=== PATIENT | female | born 1980 | race Caucasian/White ===

== ENCOUNTER → 2024-02-22 15:55 | Outpatient (REF) | payer OTHER, SELFPAY | LOC: HWWDC 15:55 | PROVIDERS: ATTENDING PHYSICIAN Nurse Practitioner Adult Health; FAMILY PHYSICIAN Family Medicine | DX: Z12.31 Encounter for screening mammogram for malignant neoplasm of breast (principal) | CPT/HCPCS: 77063; 77067 ==

== ENCOUNTER 2024-03-11 11:17 | Inpatient (IN) | payer OTHER, SELFPAY ==
[2024-03-11] VITALS (48 sets, daily range): BP systolic 96–137; BP diastolic 61–116; BMI 38.0
--- NOTE | 2024-03-11 10:10 | ED.GENMED ---
History of Present Illness
General
Chief Complaint: Breathing Problem
Source: patient
Exam Limitations: none
Time Seen by Provider: 03/11/24 10:09
Nursing documentation reviewed up to this point in time: agreed with
History of Present Illness
History of Present Illness:
43-year-old female presents emergency room complaining of shortness of breath and chest tightness that began this morning. She is brought in by EMS. She has a history of factor V Leiden. EMS noted hypoxia at 89%.
Past History
Past History
ED Past Medical History: GERD and Other (Factor V Leiden)
ED Past Surgical History: Tonsilectomy
Social History
Tobacco: Non-smoker
Alcohol: None
Drug: None
Review of Systems
Review of Systems
Allergies reviewed?: Yes
All Other Systems: Not applicable
Constitutional: Reports no symptoms
EENT: Reports no symptoms
Respiratory: Reports trouble breathing
Cardiac: Reports chest pain
ABD/GI: Reports no symptoms
: Reports no symptoms
Musculoskeletal: Reports no symptoms
Skin: Reports no symptoms
Neurological: Reports no symptoms
Endocrine: Reports no symptoms
Hematologic/Lymphatic: Reports no symptoms
Psychiatric: Reports no symptoms
Phy Exam
Physical Exam
Physical Exam:
Physical Exam
General: Moderate distress, diaphoretic, afebrile, temperature 97.4
Neck: supple. no meningeal signs. normal posterior pharynx
Heart: s1/s2 tachycardia, no murmur. equal radial
pulses.
HEENT: Pupils equal round reactive to light, EOMI
Lungs: Moderate respiratory distress. clear bilaterally
Abdomen: normal bowel sounds. not tender. no CVAT
Neuro: alert and oriented. no focal neurological deficits cranial nerves II through XII intact
Skin: no rash
Psychiatric: well kept. interactive and cooperative
Extremities: no edema. no calf tenderness. negative homans. good distal pulses
Course
Orders/Labs/Results
Orders:
Orders
03/11/24 09:59
EKG [Electrocardiogram (*1)] Urgent
Reason for Study: Shortness of Breath
EKG- Treatment ONCE
03/11/24 10:09
Cardiac Monitoring- Treatment ONCE
EKG- Treatment ONCE
IV Insert/Care/Rem.- Treatment PRN
Pulse Ox/cont/shift [RESP] Stat
Quantity: 1
03/11/24 10:10
CT Chest Pe Study Urgent
Comment:
Reason For Exam: short of breath factor v leiden
Test Result ONCE
03/11/24 10:14
CMP [Comprehensive Metabolic Panel] Urgent
Complete Blood Count/With Diff Urgent
D-Dimer Urgent
HCG, Serum Qualitative Screen Urgent
NT-proBNP Urgent
PTT Urgent
Prothrombin Time Urgent
Troponin I Urgent
03/11/24 10:[address] Non Medication Order As Directed
Physician Order: PTT 6 hours after initial start of Heparin infusion
Above order entered?: Yes
03/11/24 10:39
Heparin 8,200 units IV NOW STA
03/11/24 10:41
Echo 2D MMode Color/Doppler Stat
Reason for Study: submassive PE
03/11/24 10:42
Heparin See Dose Instructions IV PRN PRN
03/11/24 10:43
Heparin See Dose Instructions IV PRN PRN
03/11/24 10:45
Heparin 41562 Units/250 ml 25,000 units in 250 ml IV PER PROTOCOL
Weight to be used for heparin protocol in kilograms (kg):: 101.9
Protocol:: DVT/PE
PTT Goal Range to be used:: PTT 73 to 111 seconds
Order type:: Initial
INITIAL Infusion Dose (UNITS/KG/hr) & then follow protocol:: 18 units/kg/hr
Infusion Dose in UNITS/hr & then follow protocol (UNITS/hr):: 1,800
INFUSION RATE in mL/hr & then follow protocol (mL/hr):: 18
For DVT/PE algorithm, re-bolus for low PTT?: Yes
PTT less than or equal to 64 seconds:: Re-bolus 80 units/kg (max 10,000units). Increase by 400 units/hr
(+ 4mL/hr)
PTT 64.1 to 72.9 seconds:: Re-bolus 40 units/kg (max 5,000 units). Increase by 200 units/hr
(+ 2mL/hr)
PTT 73 to 111 seconds:: Target Range. No change in rate.
PTT 111.1 to 130.9 seconds:: Decrease rate by 200 units/hr (- 2 mL/hr)
PTT 131 to 199.9 seconds:: HOLD for 1 hr. Then decrease by 300 units/hr (- 3mL/hr)
PTT greater than or equal to 200 seconds:: HOLD for 2 hrs & Notify Provider. Then decrease by 400 units/hr
(- 4mL/hr)
Lab follow-up:: Each change, PTT q6h until 2 consecutive are therapeutic. Then
PTT daily.
03/11/24 11:00
Admit/Transfer Patient As Directed
Co-Sign Provider:
Level of Care: Inpatient admission
Assign to:: ICU
Physician / Group: solomon hammonds
Diagnosis: Acute hypoxic respiratory failure secondary to Acute provoked PE
Reason for Hospitalization: Acute hypoxic respiratory failure secondary to Acute provoked PE
Expected length of stay greater than two midnights?: Yes
ELOS- Estimated Length of Stay in days: 3
I certify the patient meets the requirements for IP care: Yes
Flush (0.9% Sodium Chloride) [Flush (Nss)] See Dose Instructions IV PER PROTOCOL
PRN Pain Medication Management As Directed
May give lesser potent ordered pain med per pt: Yes
preference::
Protocol:: Medication orders for pain may be administered in a
manner that supports deferring to patient preference
when the pt is:
- Requesting an ordered lesser potent pain medication.
Least to most potent pain medications are defined
as: acetaminophen < NSAID < tramadol < opioids
(morphine, oxycodone, hydromorphone).
- Requesting a lesser dose of the same medication IF
ORDERED.
- Requesting a less intrusive route of administration
if both routes are prescribed by the provider (PO <
IV).
03/11/24 11:06
Code Status As Directed
Resuscitation Status: Full Code
03/11/24 11:07
HEMATOLOGY CONSULT Routine
Consulting Provider: Sally Lopez
Was physician already notified: Yes
Reason for consult: provoked PE, factor V not on AC as outpatient
03/11/24 17:00
PTT Routine
Abnormal Lab Results
03/11/24
10:14
WBC 11.4 H 10^3/uL
(4.8-10.8)
MCV 80.7 L fL
(81.0-99.0)
MCH 26.5 L pg
(27.0-31.0)
MCHC 32.9 L g/dL
(33.0-37.0)
Plt Count 401 H 10^3/uL
(130-400)
Abs Immat Gran (auto) 0.1 H 10^3/uL
(0-0.05)
Absolute Lymphs (auto) 4.1 H 10^3/uL
(1.2-3.4)
Absolute Monos (auto) 0.8 H 10^3/uL
(0.1-0.6)
D-Dimer 5.20 H ug/mlFEU
(0.00-0.50)
Carbon Dioxide 16 L mmol/L
(22-30)
Glucose 228 H mg/dl
(70-99)
Troponin I 0.049 H* ng/ml
03/11/24 10:14
03/11/24 10:14
Vital Signs
Initial and Last Documented VS:
Initial Vital Signs
Temp Pulse Resp BP Pulse Ox
97.4 F 126 28 114/86 87
03/11/24 09:59 03/11/24 09:59 03/11/24 09:59 03/11/24 09:59 03/11/24 09:59
Last Documented Vital Signs
Temp Pulse Resp BP Pulse Ox
97.3 F 123 22 120/90 97
03/11/24 13:46 03/11/24 14:35 03/11/24 14:35 03/11/24 14:35 03/11/24 14:35
MDM/Problems Addressed
Differential Diagnosis Includes:
CHF, pneumonia, pulmonary emboli 43-year-old female with bilateral pulmonary emboli
MDM/Problems Addressed:
43-year-old female with bilateral pulmonary emboli. PERT alert called. IV heparin started. Text sent to interventional radiology, d/w pulmonology, recommends stat echo.
*Radiology
Radiology exam reviewed: preliminary read by ED provider (CT shows bilateral pulmonary emboli with right heart strain) and radiology read reviewed (Echocardiogram shows RV strain)
*Pulse Oximetry
Patient hypoxic: yes
*EKG
Interpreted by ED Provider?: Yes
EKG Intrepretation Date: 03/11/24
EKG Intrepretation Time: 10:08
Interpretation: abnormal
Comparison EKG: no comparison EKG present
Heart Rate: 124
Rate: tachycardiac
Rhythm: sinus tachycardia
Ava: right axis deviation
Interval: normal interval
QRS Pattern: normal QRS
Ischemia: no ischemia
*Revenue Stamp Clerk Interpretation
Rate: tachycardiac
Interpretation: abnormal
Heart Rate: 115
Rhythm: sinus tachycardia
*Critical Care Note
Total Time (30-74mins, 75-104mins- exclusive of procedures): 30
comment:
Critical care statement: A total of 30 minutes of critical care time was provided for this patient. This includes management of unstable vital signs, evaluation of the patient at bedside, reviewing the patient's pertinent medical records, discussion
with consultants, review of old EKGs and review of pertinent medical records. This time with separate from time utilized to perform the aforementioned documented procedures
Patient Management
Social determinants of health affecting care: Living situation and Strong social support
Discussion with other providers: Hospitalist, Supervisor Accounting Clerks (Locks Inspector, interventional radiologist) and Radiologist
Escalation/DeEscalation of care consider admission/obs:
Admit indicated
ED Attending Note
-
Portions of this chart may have been created with voice recognition software.� Occasional wrong word or��sound alike� substitutions may have occurred due to the inherent limitations of voice recognition software.
Discharge Plan
Departure
Patient Disposition: Admit
Date of Disposition: 03/11/24
Time of Disposition: 10:37
Admit to: ICU
Presentation/result/management discussed w/ accepting MD/DO: Hospitalist
Patient with high blood pressure during this ER visit?: No
Condition: Serious
Discharge Problem:
Bilateral pulmonary embolism
Interventions
Interventions:
*Risk Screen - Suicide Last Done: 03/11/24 09:59
*General Assessment Last Done: 03/11/24 11:07
*Neglect/Abuse Screening Last Done: 03/11/24 09:59
ED- Fall Risk Assessment Last Done: 03/11/24 11:07
*ED COVID-19 Vaccine History Last Done: 03/11/24 09:59
*Nursing Disposition Last Done: 03/11/24 13:45
ED- Cardiac Assessment Last Done: 03/11/24 11:07
ED- Pulmonary Assessment Last Done: 03/11/24 11:07
Discharge Date and Time
Discharge Date/Time: 03/11/24 13:45
[2024-03-11 10:31] LABS: % Basophils 0.3 % (0-2); % Eosinophils 0.9 % (0-6); % Immature Granulocytes 0.5 % (0-0.5); % Lymphocytes 35.8 % (20.5-51.1); % Monocytes 7.4 % (1.7-9.3); % Neutrophils 55.1 % (42.2-75.2); Absolute Eosinophils 0.1 10^3/uL (0-0.7); Absolute Immature Granulocytes 0.1 10^3/uL (0-0.05); Absolute Lymphocytes 4.1 10^3/uL (1.2-3.4); Absolute Monocytes 0.8 10^3/uL (0.1-0.6); Absolute Neutrophils 6.3 10^3/uL (1.4-6.5); Hematocrit 42.6 % (37.0-47.0); Mean Corp Hgb Conc. 32.9 g/dL (33.0-37.0); Mean Corpuscular Hgb 26.5 pg (27.0-31.0); Mean Corpuscular Volume 80.7 fL (81.0-99.0); Mean Platelet Volume 9.8 fL (7.4-10.4); Nucleated Red Blood Cells % 0 %; Platelet Count 401 10^3/uL (130-400); Red Blood Cell Count 5.28 10^6/uL (4.20-5.40); Red Cell Dist. Width 13.6 % (11.5-14.5); White Blood Cell Count 11.4 10^3/uL (4.8-10.8)
[2024-03-11 10:38] LABS: HCG, Serum Qualitative Screen Negative
[2024-03-11 10:43] LABS: ALT (SGPT) 21 U/L (0-35); AST (SGOT) 30 U/L (14-36); Albumin 4.8 g/dl (3.5-5.0); Alkaline Phosphatase 84 U/L (38-126); Blood Urea Nitrogen 12 mg/dl (7-17); Carbon Dioxide 16 mmol/L (22-30); Chloride 105 mmol/L (98-107); Estimated Creatinine Clearance 95 ml/min; Glucose 228 mg/dl (70-99); Potassium 4.3 mmol/L (3.5-5.1); Sodium 143 mmol/L (135-145); Total Bilirubin 0.6 mg/dl (0.2-1.3); Total Protein 7.9 g/dl (6.3-8.2); eGFR > 60.00
--- NOTE | 2024-03-11 10:43 | W.PN.UPDATE ---
Update Note
Progress Note Update
Received PERT alert for this patient regarding bilateral acute PE. She appears to be hypoxic with SpO2 down to 87% although is hemodynamically stable. Labs including troponin + proBNP are pending. I reached out to the ER physician, Dr. St,
and advised to obtain stat echo to assess RV function. If patient is symptomatic with dysfunctional RV and elevated cardiac biomarkers then would recommend catheter directed thrombolysis. I will follow this patient closely and make disposition
recommendations based on upcoming blood work and cardiac imaging.
[2024-03-11] MEDS: HEPARIN 8200 UNITS IV (10:46)
[2024-03-11 10:50] LABS: INR 1.12; PT 14.2 Sec (11.4-14.6)
[2024-03-11 10:52] LABS: APTT 28.6 Sec (23.4-35.0); NT-proBNP 2870 pg/ml; Troponin I 0.049 ng/ml
[2024-03-11] MEDS: HEPARIN 25000 UNITS/250 ML IV ×2 (10:53→17:43)
--- NOTE | 2024-03-11 12:10 | CON.INTV ---
Consultation
Consultation Request
Date/Time Consultation Requested: 03/11/2024
Date/Time Consultation Performed: 03/11/2024 - 1050
Requesting Provider: Dr. Tripathi
Performing Provider: Dr. Valdes
Reason for Consultation: Acute PE
Medical History
-
Chief Complaint: Shortness of breath + chest tightness
History of Present Illness:
43-year-old morbidly obese female with a past medical history of factor V Leiden not on chronic anticoagulation, GERD, depression/anxiety, hypothyroidism, seasonal allergies and hypertriglyceridemia who presents with worsening shortness of breath +
chest tightness. Patient was diaphoretic in the ER. Patient also takes combined oral contraceptive pills for control purposes. She was 87-88% on room air in the ER and was placed on 4 L/min. She says that her shortness of breath has
actually been ongoing for the last 1 month. In the ER she was tachycardic, tachypneic and diaphoretic, and afebrile to 97.4�F with BP 114/86. Initial labs showed mild leukocytosis to 11.4, D-dimer 5.2, serum bicarbonate level low at 16, glucose
228, troponin 0.049, proBNP 2870, and beta-hCG negative. CTA chest obtained showing moderately extensive bilateral PE with right heart strain and small area of pulmonary infarction in the right lower lobe + right middle lobe. A PERT alert was
called and CTA chest was reviewed immediately. Stat echo obtained showing Garner's sign with severe pulmonary hypertension with PASP 80 mmHg, with an underfilled LV with hyperdynamic systolic function. Discussion held between myself and IR and
catheter directed thrombolysis was recommended. Patient admitted to the ICU for further care and security support analyst services consulted for additional management/recommendations.
When asked with the patient she had already gone to IR and then was now back with the catheter directed thrombolysis infusion. She felt much better compared to earlier this morning, currently on 5 L/min nasal cannula and saturating 91%. Heart rate
117 and BP 110/96. She says that her right leg calf region feels uncomfortable. She is not sure if it is a musculoskeletal thing versus a possible clot. She has no known history of DVT in the lower extremities although she did have a left foot
phlebitis in October 2023. She currently denies chest pain, MARIN, abdominal pain, nausea, fevers or chills. Also denies any recent plane rides, long car trips, or personal history of cancer.
PMHx: Factor V Leiden, GERD, depression/anxiety, hypothyroidism, hypertriglyceridemia, seasonal allergies, obesity
PShx: Tonsillectomy, bilateral carpal tunnel surgery
Past Medical History
Past Medical History: Other (Above as per HPI)
Past Surgical History: Other (Above as per HPI)
Social History
Tobacco: Non-smoker
Alcohol: None
Drug: None
Family History
Family History: Cancer (Mother: Cervical cancer) and Other (Mother, uncle + cousin: Factor V Leiden)
Allergies / Home Medications
Allergies
Allergy/AdvReac Type Severity Reaction Status Date / Time
No Known Allergies Allergy Verified 03/11/24 10:10
Home Medications
�Medication �Instructions �Recorded �Confirmed �Last Taken �Type
Lactobac no.2-Bifidobac no.1-S. 1 cap PO DAILY@1200 probiotic 03/11/24 03/11/24 03/10/24 History
thermo 112.5 billion cell capsule
(Visbiome)
acetaminophen 325 mg tablet 650 mg PO QIDPRN PRN mild pain 03/11/24 03/11/24 03/10/24 History
(Tylenol)
cranberry extract 200 mg capsule 200 mg PO DAILY@1200 Supplement 03/11/24 03/11/24 03/10/24 History
(Ellura)
cyclosporine 0.05 % eye drops in a 1 drp BOTH EYES Q12H dry eyes 03/11/24 03/11/24 03/10/24 History
dropperette (Restasis)
desogestrel-e.estradiol 0.15 1 tab PO HS Hormonal Agent 03/11/24 03/11/24 03/10/24 History
mg-0.02 mg(21)/e.estrad 0.01 mg(5)
tablet (Kariva (28))
dexlansoprazole 60 mg 60 mg PO DAILY Gastrointestinal 03/11/24 03/11/24 03/10/24 History
capsule,biphase delayed release Issue
(Dexilant)
dextroamphetamine-amphetamine ER 20 mg PO DAILY Neurological 03/11/24 03/11/24 03/10/24 History
20 mg 24hr capsule,extend release Condition
(Adderall XR)
fenofibrate micronized 134 mg 134 mg PO QPM High Cholesterol 03/11/24 03/11/24 03/10/24 History
capsule
fluoxetine 10 mg tablet 10 mg PO QPM depression/anxiety 03/11/24 03/11/24 03/10/24 History
levothyroxine 50 mcg tablet 50 mcg PO DAILY Thyroid 03/11/24 03/11/24 03/10/24 History
(Synthroid)
metoprolol succinate 25 mg 12.5 mg PO QPM Blood Pressure 03/11/24 03/11/24 03/10/24 History
tablet,extended release 24 hr
(Toprol XL)
therapeutic multivitamin 1 tab PO DAILY@1200 Supplement 03/11/24 03/11/24 03/10/24 History
tirzepatide (weight loss) 2.5 2.5 mg SC SA@1900 weight loss 03/11/24 03/11/24 03/08/24 History
mg/0.5 mL subcutaneous pen
injector (Zepbound)
Review of Systems
-
History Source: Patient
All other systems: Negative unless noted
Vitals / Labs / Diagnostic Testing
Vital Signs
Temp Pulse Resp BP Pulse Ox
97.5 F 115 19 123/96 92
03/11/24 19:56 03/11/24 21:15 03/11/24 21:15 03/11/24 21:15 03/11/24 21:15
Lab Data
03/11/24 17:20
03/11/24 10:14
Laboratory Results
03/11/24 03/11/24
10:14 17:20
PT 14.2 18.4 H
INR 1.12 1.54
APTT 28.6 > 200 H*
Diagnostic Testing:
Physical Exam
-
HEENT: Normocephalic and Anicteric
Cardiovascular: S1/S2, Peripheral Edema (negative) and Other (Tachycardic)
Respiratory: Wheeze (negative), Rales (negative), Rhonchi (negative) and Non-Labored Respirations
GI: Soft, Distended (Abdominal obesity), Non Tender and Normal Bowel Sounds
Neurology: AO x 3
Skin: Warm and Dry
General: Respiratory Distress (mainly with exertion), Chills (negative) and Sweats (negative)
Assessment
-
Assessment: 43-year-old morbidly obese female with a past medical history of factor V Leiden not on chronic anticoagulation, GERD, depression/anxiety, hypothyroidism, seasonal allergies and hypertriglyceridemia who presents with worsening shortness
of breath + chest tightness. Patient was diaphoretic in the ER. Patient also takes combined oral contraceptive pills for control purposes. She was 87-88% on room air in the ER and was placed on 4 L/min. She says that her shortness of
breath has actually been ongoing for the last 1 month. In the ER she was tachycardic, tachypneic and diaphoretic, and afebrile to 97.4�F with BP 114/86. Initial labs showed mild leukocytosis to 11.4, D-dimer 5.2, serum bicarbonate level low at 16,
glucose 228, troponin 0.049, proBNP 2870, and beta-hCG negative. CTA chest obtained showing moderately extensive bilateral PE with right heart strain and small area of pulmonary infarction in the right lower lobe + right middle lobe. A PERT alert
was called and CTA chest was reviewed immediately. Stat echo obtained showing Garner's sign with severe pulmonary hypertension with PASP 80 mmHg, with an underfilled LV with hyperdynamic systolic function. Discussion held between Dr. Valdes
and IR, and catheter directed thrombolysis was recommended. Patient admitted to the ICU for further care and security support analyst services consulted for additional management/recommendations.
Chronic conditions DISTRICT COURT JUDGE: Factor V Leiden, GERD, depression/anxiety, hypothyroidism, hypertriglyceridemia, seasonal allergies, obesity, ADD
Impression:
#Acute submassive PE with high risk features including RV strain with Garner's sign (PESI score: Class II, low risk with 1.7 - 3.5% 30-day mortality)
#Suspected pulmonary infarction in the right lower lobe + right middle lobe due to above
#Acute respiratory failure with hypoxia due to the above
#Personal + family history of factor V Leiden not on chronic anticoagulation
#Metabolic acidosis with increased anion gap
#Hyperglycemia
#Elevated troponin due to acute submassive PE with high risk features
#Combined estrogen/progesterone oral contraceptive use for control purposes
#Morbid obesity
#Reported history of left foot phlebitis (October 2023)
#ADD on Adderall
Plan:
- Patient underwent catheter directed analysis via IR on 03/11/2024, which is recommended based on her symptomatology with severe shortness of breath, hypoxia and RV dysfunction seen on echo with severe pulm and hypertension and Garner sign with
septal flattening present
- She should repeat her echo in about 4 to 6 weeks to assess for improvement of these changes
- Continue with heparin drip + alteplase infusion as per IR via CDT-infusion --> she will go back to IR suite tomorrow for repeat pulmonary angiography and likely removal of CDT catheter
- Check LE duplex to assess for LE DVT
- Recommend outpatient hematology visit for hypercoagulable workup; she already has a history of factor V Leiden and already sees a precision lens grinder apprentice related with plan (Dr. Fong), and I advised her to continue following up with him
- Continue trending troponin until it begins to downtrend
- Eventually she will be transition to a NOAC, preferably Eliquis. Case management consultation to assess the affordability of Eliquis
- Bedrest for at least 24 hours, after which point she can work with PT/OT
- Maintain SpO2 >90-94% with supplemental O2 - weaning down as tolerated
- Maintain MAP>65
- prn nebulized bronchodilators - not currently bronchospastic
- Incentive spirometer encouraged 10x per hour for at least 4 hrs a day
- Trend serum HCO3 level and check pH and pCO2 via blood gas
- Replete electrolytes with K>4, Mg>2
- Maintain euglycemia with goal BG 140-180; check A1C
- Trend H/H and transfuse if needed to keep Hb>7g/dL; kep plt>20k, unless there is concern for bleeding then keep plt>50k
- PPI (home med)
- DVT ppx: heparin gtt
Ultimately I will arrange for outpatient pulmonary office follow-up for full PFTs and continued monitoring of her dyspnea on exertion.
Critical care statement: A total of 43 minutes of critical care time was provided for this patient today. This includes management of unstable vital signs, evaluation of the patient at bedside, reviewing the patient's pertinent medical records
including radiographs, microbiology, laboratory evaluations, and discussion with primary team, consultants, pharmacy, nutrition, physical therapy, case management, charge nurse, critical care nursing, and respiratory therapy.
Data:
Transthoracic echocardiogram 03/11/2024:
Enlarged right ventricle with severely reduced systolic function. Garner's
sign and septal flattening present.
Moderate tricuspid regurgitation. Estimated PASP 88 mmHg.
Underfilled left ventricle with hyperdynamic systolic function.
No other significant valvular disease.
No prior studies available for comparison.
--- NOTE | 2024-03-11 14:50 | HPS.HSE ---
Family Physician
-
Family Physician: Huang Pope
Chief Complaint
-
sob
History of Present Illness
43 female history of factor V Leyden diagnosed 1 year ago followed by hematology currently not on anticoagulation who presented with acute onset shortness of breath, chest tightness diaphoresis that began after awakening this morning while walking
to the bathroom. EMS called and was rushed to the hospital. Upon arrival 87% on room air. Tachycardic and tachypneic along with diaphoresis. WBC 11.4. Hemoglobin 14. Platelet count 401. D-dimer 5.2. Troponin 0.049 with a BNP of 2870. Bicarb
of 16. Chest CT moderately extensive bilateral pulmonary emboli with right heart strain and small areas of pulmonary infarction in the right lower lobe and right middle lobe. EKG sinus tachycardia rate of 124. Right axis deviation with incomplete
right bundle branch block 2D echocardiogram that was completed as stat demonstrating severely reduced systolic function of the right ventricle which is enlarged and Garner sign with septal flattening. Estimated PASP 88. Underfilled left
ventricle and hyperdynamic systolic function.
12 point ROS completed which is negative unless specified as above
Medical History
Past Medical History
Past Medical History: Reports GERD and Other
Past Surgical History: Reports Tonsilectomy
Social History
Tobacco: Non-smoker
Alcohol: None
Drug: None
Family History
Family History: Other
Allergies / Home Medications
Allergies reflects when Allergies were last updated in [employer].
Home Medications with original date entered in [employer]
Allergy/Medication List:
Allergies
Allergy/AdvReac Type Severity Reaction Status Date / Time
No Known Allergies Allergy Verified 03/11/24 10:10
Home Medications
Lactobac no.2-Bifidobac no.1-S. thermo 112.5 billion cell capsule (Visbiome) 1 cap PO DAILY@1200 probiotic 03/11/24
acetaminophen 325 mg tablet (Tylenol) 650 mg PO QIDPRN PRN mild pain 10/22/24
cranberry extract 200 mg capsule (Ellura) 200 mg PO DAILY@1200 Supplement 03/11/24
cyclosporine 0.05 % eye drops in a dropperette (Restasis) 1 drp BOTH EYES Q12H dry eyes 03/11/24
desogestrel-e.estradiol 0.15 mg-0.02 mg(21)/e.estrad 0.01 mg(5) tablet (Kariva (28)) 1 tab PO HS Hormonal Agent 03/11/24
dexlansoprazole 60 mg capsule,biphase delayed release (Dexilant) 60 mg PO DAILY Gastrointestinal Issue 03/11/24
dextroamphetamine-amphetamine ER 20 mg 24hr capsule,extend release (Adderall XR) 20 mg PO DAILY Neurological Condition 03/11/24
fenofibrate micronized 134 mg capsule 134 mg PO QPM High Cholesterol 03/11/24
fluoxetine 10 mg tablet 10 mg PO QPM depression/anxiety 03/11/24
levothyroxine 50 mcg tablet (Synthroid) 50 mcg PO DAILY Thyroid 03/11/24
metoprolol succinate 25 mg tablet,extended release 24 hr (Toprol XL) 12.5 mg PO QPM Blood Pressure 03/11/24
therapeutic multivitamin 1 tab PO DAILY@1200 Supplement 03/11/24
tirzepatide (weight loss) 2.5 mg/0.5 mL subcutaneous pen injector (Zepbound) 2.5 mg SC SA@1900 weight loss 03/11/24
Review of Systems
-
A 12 point ROS was completed and negative except as noted: Yes
Physical Exam
Vital Signs
Vital Signs
Temp Pulse Resp BP Pulse Ox
97.3 F 122 17 106/82 97
03/11/24 13:46 03/11/24 14:17 03/11/24 14:17 03/11/24 14:17 03/11/24 14:17
Physical Exam
General: Well Developed
Laboratory Results
-
03/11/24 10:14
Laboratory Results
PT 14.2 Sec (11.4-14.6) 03/11/24 10:14
INR 1.12 03/11/24 10:14
APTT 28.6 Sec (23.4-35.0) 03/11/24 10:14
Total Bilirubin 0.6 mg/dl (0.2-1.3) 03/11/24 10:14
AST 30 U/L (14-36) 03/11/24 10:14
ALT 21 U/L (0-35) 03/11/24 10:14
Alkaline Phosphatase 84 U/L (38-126) 03/11/24 10:14
Troponin I 0.049 ng/ml H* 03/11/24 10:14
Impression/Plan
-
Imaging
CTA Chest
IMPRESSION:
There are moderately extensive bilateral pulmonary emboli with right heart strain and small areas of pulmonary infarction in the right lower lobe and right middle lobe
2d Echo
Enlarged right ventricle with severely reduced systolic function. Garner's
sign and septal flattening present.
Moderate tricuspid regurgitation. Estimated PASP 88 mmHg.
Underfilled left ventricle with hyperdynamic systolic function.
No other significant valvular disease.
No prior studies available for comparison.
Physical Exam
NAD, Mild distress,tachycardic, tachypneic, diaphoretic
Scleral anicteric
Moist mucous membranes
No JVD
CTA bilateral
Normal S1-S2 no murmurs
Obese soft nontender nondistended bowel sounds active
No peripheral pitting edema
Moves extremities spontaneously
AAOx3
Assessment and Plan
Acute hypoxemic respiratory failure
-Secondary to submassive PE
-Wean oxygen as tolerated
Submassive PE, Pesi score 112 points high risk, provoked in the setting of factor V Leyden not on AC, obesity, and appears to be on hormonal therapy
-Start heparin drip
-Stat to echocardiogram completed as above
-Have personally discussed with pulmonary and IR for CDT indications
-Admit to ICU
Factor V Leiden Hx
-Hematology consulted
Demand ischemia in setting of pulmonary embolism, submassive. Initiated on heparin drip. Can trend to peak.
Pulmonary hypertension, acute, in the setting of acute PE
-Expected improved post CDP and long-term anticoagulation
Hypertriglyceridemia
-Continue fenofibrate
Depression
-Continue fluoxetine
ADHD
-Continue Adderall
Morbid Obesity
-Zepbound as an outpatient
Full Code
[2024-03-11] MEDS: CATHFLO/ACTIVASE 1000 MG INF CATH ×2 (15:45→16:23)
--- NOTE | 2024-03-11 15:57 | W.PN.IRAD.PR ---
Procedure Note
-
Successful catheter directed thrombolysis initiation. Two right groin sheaths were left in place. The more superior sheath contains the left pulmonary artery infusion catheter; the more inferior sheath contains the right pulmonary artery infusion
catheter. Both catheters will infuse 0.5 mg tpa/hr. Patient will return to IR tomorrow for catheter removal/pulmonary angiography.
[2024-03-11 17:32] LABS: Magnesium 2.1 mg/dl (1.6-2.3)
[2024-03-11 17:43] LABS: Hematocrit 37.1 % (37.0-47.0); Hemoglobin 12.4 g/dL (12.0-16.0); Mean Corp Hgb Conc. 33.4 g/dL (33.0-37.0); Mean Corpuscular Hgb 25.9 pg (27.0-31.0); Mean Corpuscular Volume 77.5 fL (81.0-99.0); Mean Platelet Volume 9.7 fL (7.4-10.4); Platelet Count 334 10^3/uL (130-400); Red Blood Cell Count 4.79 10^6/uL (4.20-5.40); Red Cell Dist. Width 13.6 % (11.5-14.5); White Blood Cell Count 8.7 10^3/uL (4.8-10.8)
[2024-03-11 17:51] LABS: INR 1.54; PT 18.4 Sec (11.4-14.6)
[2024-03-11] MEDS: SYNTHROID 50 MCG PO (17:51)
[2024-03-11 17:52] LABS: Fibrinogen 352 MG/DL (199-459)
[2024-03-11] MEDS: TRICOR PO ×2 (17:52→17:55)
[2024-03-11 18:06] LABS: APTT > 200 Sec (23.4-35.0)
[2024-03-11] MEDS: PROZAC 10 MG PO (18:08)
[2024-03-11] MEDS: TYLENOL 650 MG PO (18:08)
[2024-03-11 18:18] LABS: Troponin I 0.661 ng/ml
--- NOTE | 2024-03-11 20:00 | PTCARENOTE ---
Received patient at 1900. Pt. currently in bed. Lying flat. Awake, alert, and oriented. Groin sites and neurovascular sites checked with previous RN. Drip rates verified. Pt. denies pain/discomfort. Afebrile. Heart rhythm sinus tachy. Blood pressure
normotensive. Currently on nasal cannula. Lungs sound clear. Abdomen round and obese. Barrientos catheter in place, draining without issue. Skin as documented. Discussed plan of care with patient. Vital signs stable at this time.
[2024-03-11] MEDS: RESTASIS 0.05% OPHTHALMIC EMULSION BOTH EYES (20:01)
[2024-03-11] MEDS: MELATONIN 5 MG PO (21:18)
[2024-03-11] MEDS: PEPCID 40 MG PO (22:05)
[2024-03-12] VITALS (21 sets, daily range): BP systolic 107–147; BP diastolic 78–106; BMI 39.3
--- NOTE | 2024-03-12 | PTCARENOTE ---
Pt. assessment unchanged. Continues to receive TPA infusion via R groin catheters. Heparin gtt infusing. Pt. vital signs stable at this time.
[2024-03-12] MEDS: TYLENOL 650 MG PO ×4 (00:29→22:28)
[2024-03-12 00:47] LABS: Glucose - Point of Care 112 mg/dl (70-99)
[2024-03-12 00:57] LABS: Hematocrit 38.5 % (37.0-47.0); Hemoglobin 12.9 g/dL (12.0-16.0); Mean Corp Hgb Conc. 33.5 g/dL (33.0-37.0); Mean Corpuscular Hgb 26.4 pg (27.0-31.0); Mean Corpuscular Volume 78.7 fL (81.0-99.0); Platelet Count 264 10^3/uL (130-400); Red Blood Cell Count 4.89 10^6/uL (4.20-5.40); Red Cell Dist. Width 13.7 % (11.5-14.5); White Blood Cell Count 9.9 10^3/uL (4.8-10.8)
[2024-03-12 01:03] LABS: INR 1.28; PT 15.8 Sec (11.4-14.6)
[2024-03-12 01:04] LABS: APTT 37.3 Sec (23.4-35.0); Fibrinogen 323 MG/DL (199-459)
[2024-03-12 01:19] LABS: Troponin I 0.635 ng/ml
--- NOTE | 2024-03-12 04:00 | PTCARENOTE ---
Pt. assessment remains unchanged. PRN Tylenol for pain, see MAR. TPA and heparin gtt continues to infuse per order. Vital signs stable at this time.
[2024-03-12] MEDS: SYNTHROID 50 MCG PO (06:04)
[2024-03-12 06:08] LABS: Venous Blood Gas B.E. -6.3 mmol/L (-4 to +4); Venous Blood Gas HCO3 17.7 mmol/L (22-27); Venous Blood Gas pCO2 30 mmHg (35-48); Venous Blood Gas pH 7.38 (7.32-7.43); Venous Blood Gas pO2 143 mmHg (30-50)
[2024-03-12 06:18] LABS: INR 1.29
[2024-03-12 06:19] LABS: APTT 38.3 Sec (23.4-35.0); Fibrinogen 272 MG/DL (199-459)
[2024-03-12 06:26] LABS: Blood Urea Nitrogen 12 mg/dl (7-17); Calcium 8.7 mg/dl (8.4-10.2); Carbon Dioxide 16 mmol/L (22-30); Chloride 108 mmol/L (98-107); Estimated Creatinine Clearance > 125 ml/min; Glucose 107 mg/dl (70-99); Phosphorus 3.6 mg/dl (2.5-4.5); Potassium 4.6 mmol/L (3.5-5.1); Sodium 138 mmol/L (135-145); eGFR > 60.00
[2024-03-12 06:31] LABS: Hematocrit 34.9 % (37.0-47.0); Hemoglobin 11.7 g/dL (12.0-16.0); Mean Corp Hgb Conc. 33.5 g/dL (33.0-37.0); Mean Corpuscular Hgb 26.2 pg (27.0-31.0); Mean Corpuscular Volume 78.3 fL (81.0-99.0); Mean Platelet Volume 10.4 fL (7.4-10.4); Platelet Count 218 10^3/uL (130-400); Red Blood Cell Count 4.46 10^6/uL (4.20-5.40); Red Cell Dist. Width 13.7 % (11.5-14.5); White Blood Cell Count 9.2 10^3/uL (4.8-10.8)
--- NOTE | 2024-03-12 06:49 | CON.ONC ---
Impression
Impression
Submassive PE
Factor V Leiden
Acute Pulmonary hypertension
Obesity BMI = 39
Plan
Plan
Acute management per interventional radiology and pulmonary. Patient was a treated with lytic therapy and is currently on IV heparin.
As we approach discharge, she will be transitioned to oral Eliquis with appropriate loading dose followed by 6 months of therapeutic anticoagulation.
In light of a variety of irreversible risk factors such as morbid obesity, factor V Leiden mutation, and somewhat unprovoked nature of this pulmonary embolism, I believe she is a good candidate for long-term prophylactic anticoagulation therapy and
if she completes 6 months of therapeutic anticoagulation. She will discuss with her budget report clerk at [facility]. This decision does not have to be made until August. Potentially, a more thorough hypercoagulable workup should be obtained including some of
the other factors in addition to factor V Leiden.
Patient was given my card. She will call for follow-up if she desires although it seems like she already has a budget report clerk at [facility].
Patient History
History of Present Illness
Heme Consult: Massive PE
CC: Shortness of breath + chest pain
HPI:
43-year-old BMI = 39 morbidly obese female with a past medical history of factor V Leiden (no prior clots > + family history lead to testing) not on chronic anticoagulation presented to [facility] emergency room yesterday with acute onset
shortness of breath, chest tightness, diaphoresis, and hypoxia with home pulse oximeter measuring 89 to 90%.
She began having symptoms between August and October 2023 with left foot swelling. She attributes this to walking in high-heeled shoes causing foot swelling and 'phlebitis' of her foot. In October she underwent a Doppler ultrasound which was negative for
DVT. In December - January she developed intermittent episodes of dyspnea maybe 3 times with associated right rib pain.
Yesterday morning she developed acute onset shortness of breath, chest tightness, diaphoresis, and hypoxia. She has morbid obesity and takes oral contraceptive pills for control. She has a home pulse oximeter and pulse ox measuring 89-90%.
In the ER she was tachycardic, tachypneic and diaphoretic. Initial labs showed D-dimer 5.2, beta-hCG negative. CTA chest obtained showing moderately extensive bilateral PE with right heart strain and small area of pulmonary infarction in the right
lower lobe + right middle lobe. Stat echo revealed severe pulmonary hypertension with PASP 80 mmHg, with an underfilled LV with hyperdynamic systolic function. Catheter directed thrombolysis was performed and she was placed on IV heparin. She is
currently been feeling better since approximately 3 AM and is in bed rest in the ICU.
Risk factors include morbid obesity, oral contraceptive pills for control, and history of factor V Leiden mutation. Testing was done with a relative was found to have factor V Leiden. She sees a budget report clerk at [facility] for iron deficiency
anemia and has received IV iron in the past and also saw her and discussed the factor V Leiden mutation but no anticoagulation appropriately was recommended prophylactically. She denies any recent plane rides, long car trips, or personal history of
cancer.
Past-Medical/Surgical History
PMHx: Factor V Leiden, GERD, depression/anxiety, hypothyroidism, hypertriglyceridemia, seasonal allergies, obesity, history of iron deficiency anemia
PShx: Tonsillectomy, bilateral carpal tunnel surgery
SH
Tobacco: Non-smoker
Alcohol: None
Drug: None
FH
Family History: Cancer (Mother: Cervical cancer) and Other (Mother, uncle + cousin: Factor V Leiden)
Allergies / Home Medications
Patient Medication
�Medication �Instructions �Recorded �Confirmed �Last Taken �Type
Lactobac no.2-Bifidobac no.1-S. 1 cap PO DAILY@1200 probiotic 03/11/24 03/11/24 03/10/24 History
thermo 112.5 billion cell capsule
(Visbiome)
acetaminophen 325 mg tablet 650 mg PO QIDPRN PRN mild pain 03/11/24 03/11/24 03/10/24 History
(Tylenol)
cranberry extract 200 mg capsule 200 mg PO DAILY@1200 Supplement 03/11/24 03/11/24 03/10/24 History
(Ellura)
cyclosporine 0.05 % eye drops in a 1 drp BOTH EYES Q12H dry eyes 03/11/24 03/11/24 03/10/24 History
dropperette (Restasis)
desogestrel-e.estradiol 0.15 1 tab PO HS Hormonal Agent 03/11/24 03/11/24 03/10/24 History
mg-0.02 mg(21)/e.estrad 0.01 mg(5)
tablet (Kariva (28))
dexlansoprazole 60 mg 60 mg PO DAILY Gastrointestinal 03/11/24 03/11/24 03/10/24 History
capsule,biphase delayed release Issue
(Dexilant)
dextroamphetamine-amphetamine ER 20 mg PO DAILY Neurological 03/11/24 03/11/24 03/10/24 History
20 mg 24hr capsule,extend release Condition
(Adderall XR)
fenofibrate micronized 134 mg 134 mg PO QPM High Cholesterol 03/11/24 03/11/24 03/10/24 History
capsule
fluoxetine 10 mg tablet 10 mg PO QPM depression/anxiety 03/11/24 03/11/24 03/10/24 History
levothyroxine 50 mcg tablet 50 mcg PO DAILY Thyroid 03/11/24 03/11/24 03/10/24 History
(Synthroid)
metoprolol succinate 25 mg 12.5 mg PO QPM Blood Pressure 03/11/24 03/11/24 03/10/24 History
tablet,extended release 24 hr
(Toprol XL)
therapeutic multivitamin 1 tab PO DAILY@1200 Supplement 03/11/24 03/11/24 03/10/24 History
tirzepatide (weight loss) 2.5 2.5 mg SC SA@1900 weight loss 03/11/24 03/11/24 03/08/24 History
mg/0.5 mL subcutaneous pen
injector (Zepbound)
Active Medications
Generic Name Dose Route Start Last Admin
Trade Name Freq PRN Reason Stop Dose Admin
Acetaminophen 650 mg 03/11/24 18:03 03/12/24 06:04
Acetaminophen 325 Mg Tablet PO 04/08/24 18:02 650 mg
Q4HPRN PRN Administration
mild pain, T>100.4 F
Cyclosporine 1 drops 03/11/24 20:00 03/11/24 20:01
Cyclosporine 0.05% (Ophthalmic Emulsion) 10 Drop Droperette BOTH EYES 04/08/24 19:59 Not Given
Q12 SELIN
Famotidine 40 mg 03/11/24 22:00 03/11/24 22:05
Famotidine 40 Mg Tablet PO 04/08/24 21:59 40 mg
HS SELIN Administration
Fenofibrate 145 mg 03/11/24 18:00 03/11/24 17:55
Fenofibrate 145 Mg Tablet PO 04/08/24 17:59 Not Given
QPM SELIN
Fluoxetine HCl 10 mg 03/11/24 18:00 03/11/24 18:08
Fluoxetine 10 Mg Capsule PO 04/08/24 17:59 10 mg
QPM SELIN Administration
Alteplase, Recombinant 10 mg/ 1,000 mls @ 50 mls/hr 03/11/24 15:00 03/11/24 15:45
Sodium Chloride INF CATH 03/12/24 14:59 1,000 mls
.Q20H SELIN Administration
0.5 MG/HR
Alteplase, Recombinant 10 mg/ 1,000 mls @ 50 mls/hr 03/11/24 16:00 03/11/24 16:23
Sodium Chloride INF CATH 03/12/24 15:59 1,000 mls
.Q20H SELIN Administration
0.5 MG/HR
Heparin Sodium 25,000 units in 250 mls @ 9 mls/hr 03/11/24 17:00 03/11/24 17:43
Heparin 50943 Units/250 Ml IV 250 mls
ORDERED RATE SELIN Administration
Levothyroxine Sodium 50 mcg 03/11/24 16:38 03/12/24 06:04
Levothyroxine 50 Mcg Tablet PO 04/08/24 16:37 50 mcg
DAILY@0600 SELIN Administration
Metoprolol Succinate 12.5 mg 03/11/24 18:00
Metoprolol 12.5 Mg Extended Release Dose (1/2 Of 25 Mg Xl Tablet) PO 04/08/24 17:59
QPM SELIN
Dextroamphetamine- 0 mg 03/12/24 08:00
Amphetamine [ PO 04/09/24 07:59
Adderall Xr] 20 Mg DAILY SELIN
Cap Er - 1 Cap Po
Daily
Pantoprazole Sodium 40 mg 03/12/24 08:00
Pantoprazole 40 Mg Delayed Release Tablet PO 04/09/24 07:59
DAILY SELIN
Sodium Chloride 0 flush 03/11/24 11:00
Sodium Chloride 0.9% (Flush) Syringe IV 04/08/24 10:59
PER PROTOCOL SELIN
Physical Exam
-
General: Well Developed, Well Nourished and No Apparent Distress
HEENT: Negative Jaundice
Cardiology: S1 and S2
Pulmonary: Clear
GI: Soft and Other (Morbid obesity)
Labs
Lab Results
WBC 9.2 10^3/uL (4.8-10.8) 03/12/24 05:59
RBC 4.46 10^6/uL (4.20-5.40) 03/12/24 05:59
Hgb 11.7 g/dL (12.0-16.0) L 03/12/24 05:59
Hct 34.9 % (37.0-47.0) L 03/12/24 05:59
MCV 78.3 fL (81.0-99.0) L 03/12/24 05:59
MCH 26.2 pg (27.0-31.0) L 03/12/24 05:59
MCHC 33.5 g/dL (33.0-37.0) 03/12/24 05:59
RDW 13.7 % (11.5-14.5) 03/12/24 05:59
Plt Count 218 10^3/uL (130-400) 03/12/24 05:59
MPV 10.4 fL (7.4-10.4) 03/12/24 05:59
Abs Immat Gran (auto) 0.1 10^3/uL (0-0.05) H 03/11/24 10:14
Absolute Neuts (auto) 6.3 10^3/uL (1.4-6.5) 03/11/24 10:14
Absolute Lymphs (auto) 4.1 10^3/uL (1.2-3.4) H 03/11/24 10:14
Absolute Monos (auto) 0.8 10^3/uL (0.1-0.6) H 03/11/24 10:14
Absolute Eos (auto) 0.1 10^3/uL (0-0.7) 03/11/24 10:14
Absolute Basos (auto) 0.0 10^3/uL (0-0.2) 03/11/24 10:14
Immature Gran % 0.5 % (0-0.5) 03/11/24 10:14
Neutrophils % 55.1 % (42.2-75.2) 03/11/24 10:14
Lymphocytes % 35.8 % (20.5-51.1) 03/11/24 10:14
Monocytes % 7.4 % (1.7-9.3) 03/11/24 10:14
Eosinophils % 0.9 % (0-6) 03/11/24 10:14
Basophils % 0.3 % (0-2) 03/11/24 10:14
Creatinine 0.6 mg/dL (0.6-1.0) 03/12/24 05:59
Vital Signs
Vital Signs
Temp Pulse Resp BP Pulse Ox
97.7 F 92 20 130/79 100
03/12/24 03:24 03/12/24 06:27 03/12/24 06:27 03/12/24 06:27 03/12/24 06:27
--- NOTE | 2024-03-12 07:20 | PTCARENOTE ---
Received patient from overnight cashier. Patient is AAOx4, pleasant, conversant. Denies any numnbess or tingling. She is on 4.5L nasal cannula, oxygen saturation 96%. STates she feels better. Patient is sinus rhythm on monitor. dopper pulse of right
leg. TPA handoff completed, right groin intact. Heparin gtt infusing peripherally at standing rate of 7.5ml/hr. Patient is NPO, ramos draining yellow urine. Plan to return to IR this morning. orders reviewed.
[2024-03-12] MEDS: RESTASIS 0.05% OPHTHALMIC EMULSION 1 DROPS BOTH EYES (07:40)
[2024-03-12] MEDS: PROTONIX 40 MG PO (07:40)
--- NOTE | 2024-03-12 07:45 | PTCARENOTE ---
Took patient to IR
--- NOTE | 2024-03-12 08:10 | W.PN.INTV ---
Today's Communication / Plan
Recommendations
Systemic anticoagulation with transition to Eliquis by tomorrow (03/13)
Case management consult to assess affordability of Eliquis
Can get up out of bed tonight/tomorrow given that it has been >24 hours since her acute PE was diagnosed/started on treatment
PT/OT
Continue with Adderall/other home medications
Okay to resume her Toprol-XL
Outpatient follow-up will be arranged for full PFTs and continued monitoring of her dyspnea on exertion
Patient is stable for downgrade out of ICU to telemetry. Pulmonary service will briefly follow along.
Assessment
-
Assessment: 43-year-old morbidly obese female with a past medical history of factor V Leiden not on chronic anticoagulation, GERD, depression/anxiety, hypothyroidism, seasonal allergies and hypertriglyceridemia who presents with worsening shortness
of breath + chest tightness. Patient was diaphoretic in the ER. Patient also takes combined oral contraceptive pills for control purposes. She was 87-88% on room air in the ER and was placed on 4 L/min. She says that her shortness of
breath has actually been ongoing for the last 1 month. In the ER she was tachycardic, tachypneic and diaphoretic, and afebrile to 97.4�F with BP 114/86. Initial labs showed mild leukocytosis to 11.4, D-dimer 5.2, serum bicarbonate level low at 16,
glucose 228, troponin 0.049, proBNP 2870, and beta-hCG negative. CTA chest obtained showing moderately extensive bilateral PE with right heart strain and small area of pulmonary infarction in the right lower lobe + right middle lobe. A PERT alert
was called and CTA chest was reviewed immediately. Stat echo obtained showing Garner's sign with severe pulmonary hypertension with PASP 80 mmHg, with an underfilled LV with hyperdynamic systolic function. Discussion held between Dr. Valdes
and IR, and catheter directed thrombolysis was recommended. Patient admitted to the ICU for further care and planer operator services consulted for additional management/recommendations.
Chronic conditions MEDICAL RECORDS CODER: Factor V Leiden, GERD, depression/anxiety, hypothyroidism, hypertriglyceridemia, seasonal allergies, obesity, ADD
Impression:
#Acute submassive PE with high risk features including RV strain with Garner's sign (PESI score: Class II, low risk with 1.7 - 3.5% 30-day mortality)
#Acute nonocclusive left popliteal vein DVT
#Suspected pulmonary infarction in the right lower lobe + right middle lobe due to above
#Acute respiratory failure with hypoxia due to the above
#Personal + family history of factor V Leiden not on chronic anticoagulation
#Metabolic acidosis with increased anion gap
#Hyperglycemia
#Elevated troponin due to acute submassive PE with high risk features -troponin peaked at 0.661 on 03/11/2024
#Combined estrogen/progesterone oral contraceptive use for control purposes
#Morbid obesity
#Reported history of left foot phlebitis (October 2023)
#ADD on Adderall
Plan:
- Patient underwent catheter directed analysis via IR on 03/11/2024, which is recommended based on her symptomatology with severe shortness of breath, hypoxia and RV dysfunction seen on echo with severe PH and Garner sign with septal flattening
- She should repeat her echo in about 4 to 6 weeks to assess for improvement of these changes
- Continue with heparin drip + alteplase infusion as per IR via CDT-infusion --> she went back to IR suite today showing improved embolus burden mild pulmonary hypertension --> CDT catheter now removed
- Check LE duplex to assess for LE DVT
- Outpatient hematology evall recommended for hypercoagulable workup; she already has a history of factor V Leiden and already sees a sprinkling system irrigator related with plan (Dr. Fong), and I advised her to continue following up with him
- No need to continue trending troponin given it peaked on 03/11/2024 at 0.661
- Eventually she will be transition to a NOAC, preferably Eliquis. Case management consultation to assess the affordability of Eliquis
- Bedrest for at least 24 hours, after which point she can work with PT/OT --> can get up out of bed as of this evening/tomorrow morning
- Maintain SpO2 >90-94% with supplemental O2 - weaning down as tolerated
- Maintain MAP>65
- prn nebulized bronchodilators - not currently bronchospastic
- Incentive spirometer encouraged 10x per hour for at least 4 hrs a day
- Trend serum HCO3 level; ABG this morning shows pH 7.38, pCO2 30 --> no need to continue checking blood gases at this time
- Replete electrolytes with K>4, Mg>2
- Maintain euglycemia with goal BG 140-180; check A1C
- Trend H/H and transfuse if needed to keep Hb>7g/dL; keep plt>50k given that she is now on blood thinners
- PPI (home med)
- DVT ppx: heparin gtt
Ultimately I will arrange for outpatient pulmonary office follow-up for full PFTs and continued monitoring of her dyspnea on exertion.
Patient is stable for downgrade out of ICU to telemetry. Pulmonary service will briefly follow along.
Total time spent today was 59 minutes for this encounter. Time includes reviewing laboratory test/imaging results, reviewing pertinent medical records, obtaining and reviewing medical history, performing an appropriate exam, ordering medications,
tests and procedures. Time also includes documentation of this encounter, coordinating patient care and communicating with other healthcare professionals. Total time does not include separately billed tests performed on this date of service.
Data:
Transthoracic echocardiogram 03/11/2024:
Enlarged right ventricle with severely reduced systolic function. Garner's
sign and septal flattening present.
Moderate tricuspid regurgitation. Estimated PASP 88 mmHg.
Underfilled left ventricle with hyperdynamic systolic function.
No other significant valvular disease.
No prior studies available for comparison.
Lower extremity duplex 03/12/2024:
1. Nonocclusive thrombus in the left popliteal vein.
2. No evidence of deep venous thrombosis in the right lower extremity.
Subjective Dataa
Subjective Data
Date of Service:
Date of Service: March 12, 2024
Chief Complaint: Advanced Solutions Architect Follow Up and VTE Follow Up
Subjective:
Patient seen and evaluated this morning. Went back to IR this morning for pulmonary angiogram showing improved embolus burden, with right PA pressure 40/12, and left PA pressure 45/15. Both sheaths were removed. Lower extremity ultrasound today
showed a left popliteal vein DVT. When I saw the patient, her mother was in the room. Patient is currently on 2 L/min nasal cannula saturating 90%, heart rate 98 and BP 134/110. She says she feels much better compared to yesterday, with improving
shortness of breath. No chest pain, MARIN, abdominal pain, nausea, fevers or chills.
Review of Systems
General: Other (Negative unless mentioned above)
Objective Data
Data Reviewed
Vital Signs / I&O / Oxygen:
Vital Signs
Temp Pulse Resp BP Pulse Ox
97.8 F 97 22 138/106 95
03/12/24 07:00 03/12/24 07:30 03/12/24 07:30 03/12/24 07:00 03/12/24 08:00
Intake and Output
03/11/24 03/12/24 03/13/24
06:59 06:59 06:59
Intake Total 1490.0 / 1597.5 107.5 / 107.5
Output Total 580 / 580
Balance 910.0 / 1017.5 107.5 / 107.5
SaO2 95
Nasal Cannula flow liters per 5
minute
Physical Exam
General: Respiratory Distress (negative), Comfortable, Chills (negative), Sweats (negative) and Other (Morbidly obese in no acute distress; pleasant mood)
HEENT: Normocephalic and Anicteric
Cardiovascular: S1-S2, Murmur (negative), Rub (negative) and Peripheral Edema (negative)
Respiratory: Clear, Wheeze (negative), Crackles (negative), Rhonchi (negative) and Non-Labored Respirations
GI: Soft, Distended (Abdominal obesity), Non Tender and Normal Bowel Sounds
Neurology: AO x 3 and Tremors (negative)
Skin: Warm, Dry, Cyanosis (negative) and Jaundice (negative)
Labs/Micro/Reports
Lab Data
03/12/24 05:59
Laboratory Results
03/11/24 03/11/24 03/11/24
10:14 17:20 17:20
PT 14.2 18.4 H
INR 1.12 1.54
APTT 28.6 > 200 H* Cancelled
03/12/24 03/12/24 03/12/24
00:00 00:41 05:59
PT 15.8 H 16.0 H
INR 1.28 1.29
APTT Cancelled 37.3 H 38.3 H
--- NOTE | 2024-03-12 08:34 | W.PN.UPDATE ---
Update Note
Progress Note Update
Follow up arteriogram shows significant improvement in central embolus burden compared to CT. PA pressure 40/12, mean 24 mmHg (not measured yesterday).
Patient feels much better, HR has come down nicely.
Thrombolysis completed, will remove sheaths. Bedrest for 4 hours. OK to titrate heparin up starting in 2 hours (currently on 750 units/hr).
--- NOTE | 2024-03-12 09:00 | PTCARENOTE ---
Picked up patient in IR. Patient had TPA catheters removed. manual pressure held. Patient to lay extremely flat for 4 hours. Extension Course Coordinator to manage heparin gtt going forward per IR.
[2024-03-12 10:56] LABS: Glycohemoglobin (HgbA1c) 5.5 % (4.0-5.6)
[2024-03-12] MEDS: CATHFLO/ACTIVASE INF CATH (11:37)
--- NOTE | 2024-03-12 12:11 | PTCARENOTE ---
Patient is now on 1800units of insulin. Ptt ordered 6 hours post rate change. Otherwise no change in assessment. Patient may sit up after 1300.
--- NOTE | 2024-03-12 15:37 | W.PN.HOSP.TC ---
Today's Communication/Plan
-
Assessment / Plan
Assessment / Plan
Imaging
CTA Chest
IMPRESSION:
There are moderately extensive bilateral pulmonary emboli with right heart strain and small areas of pulmonary infarction in the right lower lobe and right middle lobe
2d Echo
Enlarged right ventricle with severely reduced systolic function. Garner's
sign and septal flattening present.
Moderate tricuspid regurgitation. Estimated PASP 88 mmHg.
Underfilled left ventricle with hyperdynamic systolic function.
No other significant valvular disease.
No prior studies available for comparison.
Thrombolysis
IMPRESSION:
1. Improved embolus burden on each side compared to prior CTA chest. Relatively well-preserved parenchymal perfusion of each lung. Persistent parenchymal perfusion defects are seen at the left lung apex, within the right mid and lower lung zones.
2. Mean pulmonary arterial pressure measured between 24 and 28 mmHg. Pressures were not measured prior to thrombolysis.
3. Thrombolysis was discontinued. The patient will resume therapeutic systemic anticoagulation approximately 2 hours following sheath removal.
DVT study
IMPRESSION:
1. Nonocclusive thrombus in the left popliteal vein.
2. No evidence of deep venous thrombosis in the right lower extremity as described above
Physical Exam
NAD, Mild distress,tachycardic, tachypneic, diaphoretic
Scleral anicteric
Moist mucous membranes
No JVD
CTA bilateral
Normal S1-S2 no murmurs
Obese soft nontender nondistended bowel sounds active
No peripheral pitting edema
Moves extremities spontaneously
AAOx3
Assessment and Plan
Acute hypoxemic respiratory failure
-Secondary to submassive PE
-Wean oxygen as tolerated
Submassive PE, Pesi score 112 points high risk, provoked in the setting of factor V Leyden not on AC, obesity, and appears to be on hormonal therapy
-Started heparin drip plan to transition to po DOAC in the next 24-48hours per Pulm recs
-Echocardiogram completed as above
-Outpatient Hematology follow up for broadened hypercoag work up
-Cannot use OCP's any more. She verbalized understanding of this
Factor V Leiden Hx
-Hematology consulted
Demand ischemia in setting of pulmonary embolism, submassive. Initiated on heparin drip.
-Peak as expected at 0.661
Pulmonary hypertension, acute, in the setting of acute PE
-Expected improved post CDP and long-term anticoagulation
-Improved pressures which are expected post CDT.
Hypertriglyceridemia
-Continue fenofibrate
Depression
-Continue fluoxetine
ADHD
-Continue Adderall
Morbid Obesity
-Zepbound as an outpatient
Full Code
Anticipated Discharge: 24 - 48 hours
Subjective/Interval History
-
Date of Service: March 12, 2024
seen and examined. no new compalitns. no acute overnight events
states that she is gfeeling much better.
hr improved. still on o2 though
she confirms ocp use
Objective Data
-
Labs:
Laboratory Results
03/12/24 03/12/24 03/12/24
05:59 11:27 12:00
WBC 9.2 Cancelled Cancelled
Hgb 11.7 L Cancelled Cancelled
Hct 34.9 L Cancelled Cancelled
Plt Count 218 Cancelled Cancelled
PT 16.0 H Cancelled
INR 1.29 Cancelled
APTT 38.3 H Cancelled Cancelled
Sodium 138
Potassium 4.6
Chloride 108 H
Carbon Dioxide 16 L
BUN 12
Creatinine 0.6
Glucose 107 H
Calcium 8.7
03/12/24 03/12/24
17:30 18:00
WBC Cancelled
Hgb Cancelled
Hct Cancelled
Plt Count Cancelled
PT Cancelled
INR Cancelled
APTT Pending Cancelled
Sodium
Potassium
Chloride
Carbon Dioxide
BUN
Creatinine
Glucose
Calcium
Vital Signs:
Vital Signs
Temp Pulse Resp BP Pulse Ox
98.4 F 89 27 124/93 98
03/12/24 11:00 03/12/24 12:00 03/12/24 12:00 03/12/24 12:00 03/12/24 12:00
I&O
03/11/24 03/12/24 03/13/24
06:59 06:59 06:59
Intake Total 1490.0 / 1597.5 148.0 / 148.0
Output Total 580 / 580
Balance 910.0 / 1017.5 148.0 / 148.0
[2024-03-12] MEDS: HEPARIN 25000 UNITS/250 ML IV (16:29)
--- NOTE | 2024-03-12 17:23 | PTCARENOTE ---
Patient now OOB assist x1. family at bedside.
[2024-03-12] MEDS: TRICOR 145 MG PO (17:56)
[2024-03-12] MEDS: PROZAC 10 MG PO (17:56)
[2024-03-12] MEDS: TOPROL XL 12.5 MG PO (17:56)
--- NOTE | 2024-03-12 20:33 | PTCARENOTE ---
On assessment pt AAOx3, denies pain, c/o slight SOB, 95% on 2L NC, lungs clear, ST on the monitor denies chest pain, due to void at 2300, ramos removed during dayshift, family at bedside, call lópez in reach
[2024-03-12] MEDS: RESTASIS 0.05% OPHTHALMIC EMULSION BOTH EYES (21:33)
--- NOTE | 2024-03-12 22:00 | TRANSFER ---
Received pt from ICU via wheelchair. Pt ambulated to bed with assist x1. AAOx3. Heparin gtt running and 2 L oxygen present. Mother at bedside, will be staying over, cot provided. Assessed and oriented to room. cement patcher placed. Pt c/o right
shoulder pain, see MAR. Pt verbalized understanding of call lópez. Call lópez within close reach. Will continue to monitor.
[2024-03-13 00:24] LABS: APTT 98.5 Sec (23.4-35.0)
[2024-03-13 03:08] VITALS: BP 125/79
[2024-03-13] MEDS: SYNTHROID 50 MCG PO (05:21)
[2024-03-13 06:52] LABS: Hematocrit 35.6 % (37.0-47.0); Hemoglobin 11.7 g/dL (12.0-16.0); Mean Corp Hgb Conc. 32.9 g/dL (33.0-37.0); Mean Corpuscular Hgb 26.1 pg (27.0-31.0); Mean Corpuscular Volume 79.5 fL (81.0-99.0); Mean Platelet Volume 10.4 fL (7.4-10.4); Platelet Count 178 10^3/uL (130-400); Red Blood Cell Count 4.48 10^6/uL (4.20-5.40); Red Cell Dist. Width 13.6 % (11.5-14.5); White Blood Cell Count 7.8 10^3/uL (4.8-10.8)
[2024-03-13 06:54] LABS: APTT 144.1 Sec (23.4-35.0)
[2024-03-13 07:00] VITALS: BP 137/104
[2024-03-13 07:12] LABS: Blood Urea Nitrogen 13 mg/dl (7-17); Calcium 8.8 mg/dl (8.4-10.2); Carbon Dioxide 22 mmol/L (22-30); Chloride 105 mmol/L (98-107); Estimated Creatinine Clearance 123 ml/min; Glucose 111 mg/dl (70-99); Magnesium 2.1 mg/dl (1.6-2.3); Phosphorus 2.7 mg/dl (2.5-4.5); Potassium 4.2 mmol/L (3.5-5.1); Sodium 141 mmol/L (135-145); eGFR > 60.00
[2024-03-13] MEDS: PROTONIX 40 MG PO (07:43)
[2024-03-13] MEDS: RESTASIS 0.05% OPHTHALMIC EMULSION 1 DROPS BOTH EYES (07:43)
[2024-03-13] MEDS: HEPARIN 25000 UNITS/250 ML IV (07:44)
[2024-03-13] MEDS: ELIQUIS 10 MG PO (09:00)
--- NOTE | 2024-03-13 10:40 | W.PN.HOSP.TC ---
Today's Communication/Plan
-
DC home
More than 30 minutes spent in discharge including
Final examination of the patient
Summarizing hospital stay
Instructions for continuing care to all relevant caregivers
Preparation of discharge records, prescriptions, and referral forms
Total time spent (in minutes): 36mins
Assessment / Plan
Assessment / Plan
Imaging
CTA Chest
IMPRESSION:
There are moderately extensive bilateral pulmonary emboli with right heart strain and small areas of pulmonary infarction in the right lower lobe and right middle lobe
2d Echo
Enlarged right ventricle with severely reduced systolic function. Garner's
sign and septal flattening present.
Moderate tricuspid regurgitation. Estimated PASP 88 mmHg.
Underfilled left ventricle with hyperdynamic systolic function.
No other significant valvular disease.
No prior studies available for comparison.
Thrombolysis
IMPRESSION:
1. Improved embolus burden on each side compared to prior CTA chest. Relatively well-preserved parenchymal perfusion of each lung. Persistent parenchymal perfusion defects are seen at the left lung apex, within the right mid and lower lung zones.
2. Mean pulmonary arterial pressure measured between 24 and 28 mmHg. Pressures were not measured prior to thrombolysis.
3. Thrombolysis was discontinued. The patient will resume therapeutic systemic anticoagulation approximately 2 hours following sheath removal.
DVT study
IMPRESSION:
1. Nonocclusive thrombus in the left popliteal vein.
2. No evidence of deep venous thrombosis in the right lower extremity as described above
Physical Exam
NAD, Mild distress,tachycardic, tachypneic, diaphoretic
Scleral anicteric
Moist mucous membranes
No JVD
CTA bilateral
Normal S1-S2 no murmurs
Obese soft nontender nondistended bowel sounds active
No peripheral pitting edema
Moves extremities spontaneously
AAOx3
Assessment and Plan
Acute hypoxemic respiratory failure, resolved
-Secondary to submassive PE
-Wean oxygen as tolerated
Submassive PE, Pesi score 112 points high risk, provoked in the setting of factor V Leyden not on AC, obesity, and appears to be on hormonal therapy
-Started heparin drip plan to transition to po DOAC in the next 24-48hours per Pulm recs
-Echocardiogram completed as above
-Outpatient Hematology follow up for broadened hypercoag work up
-Cannot use OCP's any more. She verbalized understanding of this
Acute DVT - LLE
-Transition from IV hep gtt to PO eliquis
Factor V Leiden Hx
-Hematology following, outpatient follow up
Demand ischemia in setting of pulmonary embolism, submassive. Initiated on heparin drip.
-Peak as expected at 0.661
Pulmonary hypertension, acute, in the setting of acute PE
-Expected improved post CDP and long-term anticoagulation
-Improved pressures which are expected post CDT.
Hypertriglyceridemia
-Continue fenofibrate
Depression
-Continue fluoxetine
ADHD
-Continue Adderall
Morbid Obesity
-Zepbound as an outpatient
Pulmonary nodules
-Noted on MRI AP from OSH, record recieved from outpatient GI office (Dr. Baptiste) - Right pleural base, multiple, measuring >14mm
-I called CT, spoke with reading CT radiologist Dr. Griffin: he messaged me via [employer]:
- -Multiple pulmonary nodular opacietes at the right lung base. Prob small peripheral pulmonary infarcts as stated in the report.
- -Will recommend per Fleishner criteria, even though she is low risk, nodules measures at 14mm on MRI, therefore, she should have repeat CT Chest with in 3-6months and again 18-24months.
- - -Does not mention if solid or not.
---------I reviewed these results with her and her mother that was at bedside.
I reviewed these findings with pulmonary
Full Code
Anticipated Discharge: Today
Subjective/Interval History
-
Date of Service: March 13, 2024
seen and exmained. no new comaplionts
ambulating the room without hypoxia. some sob improves with rest
Objective Data
-
Labs:
Laboratory Results
03/13/24 03/13/24
00:01 06:07
WBC 7.8
Hgb 11.7 L
Hct 35.6 L
Plt Count 178
APTT 98.5 H 144.1 H
Sodium 141
Potassium 4.2
Chloride 105
Carbon Dioxide 22
BUN 13
Creatinine 0.7
Glucose 111 H
Calcium 8.8
Vital Signs:
Vital Signs
Temp Pulse Resp BP Pulse Ox
97.1 F 86 14 137/104 96
03/13/24 07:00 03/13/24 07:00 03/13/24 07:00 03/13/24 07:00 03/13/24 08:00
I&O
03/12/24 03/13/24 03/14/24
06:59 06:59 06:59
Intake Total 1490.0 / 1597.5 1672.0 / 1672.0
Output Total 580 / 580 1050 / 1050
Balance 910.0 / 1017.5 622.0 / 622.0
[2024-03-13 10:55] VITALS: PULSE 122; PULSE 97; O2SAT 97
[2024-03-13 10:58] VITALS: PULSE 109; O2SAT 94
[2024-03-13 12:00] VITALS: BP 140/83
--- NOTE | 2024-03-13 12:13 | W.DCSUMMARY ---
Addendum entered and electronically signed by Aaron Tripathi MD 03/16/24 14:22:
Acute Bilateral Pulmonary Embolism without Acute Cor pulmonale
Addendum entered and electronically signed by Aaron Tripathi MD 03/13/24 13:57:
per pulmonary repeat chest ct in 6-8weeks
Original Note:
Discharge Summary
Discharge Data
Date of Admission: 03/11/24
Date of Discharge: 03/13/24
-
Pending Results: No
Hospital Course
43 female history of factor V [place] presented with shortness of breath chest tightness and sweating. Found to have D-dimer 5.[address] that demonstrated bilateral pulmonary emboli without right heart strain small areas of pulmonary
infarction in the right lower lobe and right middle lobe. Was tachycardic hypoxic. Troponin peaked at 0.661 with a BNP of 2870. 2D echocardiogram report as below. Was evaluated by pulmonary/ICU, interventional radiology and cardiology. Was
taken for catheter directed thrombolysis with improvement in clot burden on repeat imaging. Was able to wean oxygen to room air.
Stop taking control pills
Start Eliquis 10 mg twice a day x 7
Once loading dose has been completed
Start Eliquis 5mg twice a day
Apart from treatment of this pulmonary embolism was brought to our attention the diagnosis of pulmonary nodules that was found on outside imaging. This was reviewed is greater than 14 mm at the right pleural base compared to most recent CT which
was not end of report however spoke with radiology who states that the pulmonary nodules remain however did not quantify size. Should have repeat chest CT with in 3 to 6 months. Will need to follow-up with outpatient PCP for this prescription to
obtain this test.
Will need outpatient hematology follow-up. Will need outpatient pulmonary follow-up.
Imaging
CTA Chest
IMPRESSION:
There are moderately extensive bilateral pulmonary emboli with right heart strain and small areas of pulmonary infarction in the right lower lobe and right middle lobe
2d Echo
Enlarged right ventricle with severely reduced systolic function. Garner's
sign and septal flattening present.
Moderate tricuspid regurgitation. Estimated PASP 88 mmHg.
Underfilled left ventricle with hyperdynamic systolic function.
No other significant valvular disease.
No prior studies available for comparison.
Thrombolysis
IMPRESSION:
1. Improved embolus burden on each side compared to prior CTA chest. Relatively well-preserved parenchymal perfusion of each lung. Persistent parenchymal perfusion defects are seen at the left lung apex, within the right mid and lower lung zones.
2. Mean pulmonary arterial pressure measured between 24 and 28 mmHg. Pressures were not measured prior to thrombolysis.
3. Thrombolysis was discontinued. The patient will resume therapeutic systemic anticoagulation approximately 2 hours following sheath removal.
DVT study
IMPRESSION:
1. Nonocclusive thrombus in the left popliteal vein.
2. No evidence of deep venous thrombosis in the right lower extremity as described above
Discharge Plan
-
Patient Disposition: Home (Routine Discharge)
Discharge Diagnosis/Procedures: Acute VTE, Submassive PE, Left lower extremity PE
Condition: Good
Diet: As tolerated
Activity: As tolerated
Activity Restrictions/Additional Instructions:
Presented with shortness of breath chest tightness and sweating. Found to have D-dimer 5.[address] that demonstrated bilateral pulmonary emboli without right heart strain small areas of pulmonary infarction in the right lower lobe and right
middle lobe. Was tachycardic hypoxic. Troponin peaked at 0.661 with a BNP of 2870. 2D echocardiogram report as below. Was evaluated by pulmonary/ICU, interventional radiology and cardiology. Was taken for catheter directed thrombolysis with
improvement in clot burden on repeat imaging. Was able to wean oxygen to room air.
Stop taking control pills
Start Eliquis 10 mg twice a day x 7
Once loading dose has been completed
Start Eliquis 5mg twice a day
Apart from treatment of this pulmonary embolism was brought to our attention the diagnosis of pulmonary nodules that was found on outside imaging. This was reviewed is greater than 14 mm at the right pleural base compared to most recent CT which
was not end of report however spoke with radiology who states that the pulmonary nodules remain however did not quantify size. Should have repeat chest CT with in 3 to 6 months. Will need to follow-up with outpatient PCP for this prescription to
obtain this test.
Will need outpatient hematology follow-up. Will need outpatient pulmonary follow-up.
Imaging
CTA Chest
IMPRESSION:
There are moderately extensive bilateral pulmonary emboli with right heart strain and small areas of pulmonary infarction in the right lower lobe and right middle lobe
2d Echo
Enlarged right ventricle with severely reduced systolic function. Garner's
sign and septal flattening present.
Moderate tricuspid regurgitation. Estimated PASP 88 mmHg.
Underfilled left ventricle with hyperdynamic systolic function.
No other significant valvular disease.
No prior studies available for comparison.
Thrombolysis
IMPRESSION:
1. Improved embolus burden on each side compared to prior CTA chest. Relatively well-preserved parenchymal perfusion of each lung. Persistent parenchymal perfusion defects are seen at the left lung apex, within the right mid and lower lung zones.
2. Mean pulmonary arterial pressure measured between 24 and 28 mmHg. Pressures were not measured prior to thrombolysis.
3. Thrombolysis was discontinued. The patient will resume therapeutic systemic anticoagulation approximately 2 hours following sheath removal.
DVT study
IMPRESSION:
1. Nonocclusive thrombus in the left popliteal vein.
2. No evidence of deep venous thrombosis in the right lower extremity as described above
Instructions: Pulmonary embolism - Discharge instructions
Referrals:
Anam Valdes MD [Active] - in four to six weeks (full PFTs on day of office visit)
Huang Pope DO [Family Provider] -
Additional Discharge Medication Instructions: Stop taking control pills/hormonal therapy
Start Eliquis 10 mg twice a day x 7
Once loading dose has been completed
Start Eliquis 5mg twice a day
Outpatient Hematology follow up
Outpatient Pulmonary follow up
Outpatient PCP follow up
Prescriptions:
New
Eliquis 5 mg Tablet
10 mg PO BID 7 Days Qty: 28 0RF
Eliquis 5 mg tablet
5 mg PO BID 90 Days Qty: 180 0RF
Rx Instructions:
start taking on 03/20/2024 at 0800am twice a day
Continued
fluoxetine 10 mg Tablet
10 mg PO QPM
therapeutic multivitamin Tablet
1 tab PO DAILY@1200
fenofibrate micronized 134 mg Capsule
134 mg PO QPM
dextroamphetamine-amphetamine [Adderall XR] 20 mg Capsule,Extended Release 24hr
20 mg PO DAILY
levothyroxine [Synthroid] 50 mcg Tablet
50 mcg PO DAILY
metoprolol succinate [Toprol XL] 25 mg Tablet Extended Release 24 Hr
12.5 mg PO QPM
cyclosporine [Restasis] 0.05 % Dropperette
1 drp BOTH EYES Q12H
Visbiome 112.5 billion cell Capsule
1 cap PO DAILY@1200
dexlansoprazole [Dexilant] 60 mg Capsule,Biphase Delayed Releas
60 mg PO DAILY
cranberry extract [Ellura] 200 mg Capsule
200 mg PO DAILY@1200
Zepbound 2.5 mg/0.5 mL Pen Injector
2.5 mg SC SA@1900
Rx Instructions:
for 4 weeks
acetaminophen [Tylenol] 325 mg Tablet
650 mg PO QIDPRN PRN (Reason: mild pain)
famotidine [Pepcid] 40 mg Tablet
40 mg PO HS
Discontinued
desog-e.estradiol/e.estradiol [Kariva (28)] 0.15-0.02 mgx21 /0.01 mg x 5 Tablet
1 tab PO HS
Discharge Orders:
Discharge Patient (As Directed); Ordered 03/13/24
Ordered By: Aaron Tripathi
Discharge Date and Time
Print Language: UZBEK
--- NOTE | 2024-03-13 12:21 | W.PN.PUL3 ---
Today's Communication / Plan
-
Anticoagulation
Discharge planning
Outpatient pulmonary follow-up
Sign off
Assessment
-
Assessment: 43-year-old morbidly obese female with a past medical history of factor V Leiden not on chronic anticoagulation, GERD, depression/anxiety, hypothyroidism, seasonal allergies and hypertriglyceridemia who presents with worsening shortness
of breath + chest tightness. Patient was diaphoretic in the ER. Patient also takes combined oral contraceptive pills for control purposes. She was 87-88% on room air in the ER and was placed on 4 L/min. She says that her shortness of
breath has actually been ongoing for the last 1 month. In the ER she was tachycardic, tachypneic and diaphoretic, and afebrile to 97.4�F with BP 114/86. Initial labs showed mild leukocytosis to 11.4, D-dimer 5.2, serum bicarbonate level low at 16,
glucose 228, troponin 0.049, proBNP 2870, and beta-hCG negative. CTA chest obtained showing moderately extensive bilateral PE with right heart strain and small area of pulmonary infarction in the right lower lobe + right middle lobe. A PERT alert
was called and CTA chest was reviewed immediately. Stat echo obtained showing Garner's sign with severe pulmonary hypertension with PASP 80 mmHg, with an underfilled LV with hyperdynamic systolic function. Discussion held between Dr. Valdes
and IR, and catheter directed thrombolysis was recommended. Patient admitted to the ICU for further care and assembly instructions writer services consulted for additional management/recommendations.
Chronic conditions SPLITTER HAND: Factor V Leiden, GERD, depression/anxiety, hypothyroidism, hypertriglyceridemia, seasonal allergies, obesity, ADD
Impression:
#Acute submassive PE with high risk features including RV strain with Garner's sign (PESI score: Class II, low risk with 1.7 - 3.5% 30-day mortality)
#Acute nonocclusive left popliteal vein DVT
#Suspected pulmonary infarction in the right lower lobe + right middle lobe due to above
#Acute respiratory failure with hypoxia due to the above
#Personal + family history of factor V Leiden not on chronic anticoagulation
#Metabolic acidosis with increased anion gap
#Hyperglycemia
#Elevated troponin due to acute submassive PE with high risk features -troponin peaked at 0.661 on 03/11/2024
#Combined estrogen/progesterone oral contraceptive use for control purposes
#Morbid obesity
#Reported history of left foot phlebitis (October 2023)
#ADD on Adderall
Plan:
- Patient underwent catheter directed analysis via IR on 03/11/2024, which is recommended based on her symptomatology with severe shortness of breath, hypoxia and RV dysfunction seen on echo with severe PH and Garner sign with septal flattening
- She should repeat her echo in about 4 to 6 weeks to assess for improvement of these changes
- Continue with heparin drip + alteplase infusion as per IR via CDT-infusion --> transition to oral anticoagulation already.
-Lower extremity Dopplers showed nonocclusive thrombus in the left popliteal vein.
- Outpatient hematology evall recommended for hypercoagulable workup; she already has a history of factor V Leiden and already sees a custom tailor apprentice related with plan (Dr. Fong), and I advised her to continue following up with him
-
Patient ambulated, she will have some residual shortness of breath.
Slowly increase activity as tolerated at home.
Return to the hospital if there is worsening symptoms.
No strenuous exercising for about 6 weeks.
Patient has to right lower lobe nodules-peripheral location suggest pulmonary infarct.
Also present on MRI of the abdomen the patient underwent at [facility] 03/06/2024.
Will need to repeat CT chest in about 6 to 8 weeks from now to document stability/resolution of nodules.
Ultimately I will arrange for outpatient pulmonary office follow-up for full PFTs and continued monitoring of her dyspnea on exertion. Information will be left in the chart.
Discussed with primary team.
Outpatient pulmonary follow-up
Data:
Transthoracic echocardiogram 03/11/2024:
Enlarged right ventricle with severely reduced systolic function. Garner's
sign and septal flattening present.
Moderate tricuspid regurgitation. Estimated PASP 88 mmHg.
Underfilled left ventricle with hyperdynamic systolic function.
No other significant valvular disease.
No prior studies available for comparison.
Lower extremity duplex 03/12/2024:
1. Nonocclusive thrombus in the left popliteal vein.
2. No evidence of deep venous thrombosis in the right lower extremity.
Subjective Data
-
Date of Service:
Date of Service: March 13, 2024
Chief Complaint: Pulmonary Follow Up (Acute pulmonary embolism)
Subjective:
Patient feels better, still short of breath with activity but denies lightheadedness or chest pain.
Tolerating anticoagulation
Review of Systems
Cardiopulmonary: Dyspnea on Exertion (Improved)
Objective Data
Data Reviewed
Vital Signs / I&O / Oxygen:
Vital Signs
Temp Pulse Resp BP Pulse Ox
97.1 F 86 14 137/104 96
03/13/24 07:00 03/13/24 07:00 03/13/24 07:00 03/13/24 07:00 03/13/24 08:00
Intake and Output
03/12/24 03/13/24 03/14/24
06:59 06:59 06:59
Intake Total 1490.0 / 1597.5 1672.0 / 1672.0
Output Total 580 / 580 1050 / 1050
Balance 910.0 / 1017.5 622.0 / 622.0
SaO2 96
Nasal Cannula flow liters per 2
minute
Physical Exam
General: Comfortable
HEENT: Normocephalic
Respiratory: Non-Labored Respirations
GI: Soft and Non Distended
Neurology: Awake, AO x 3 and No Motor Deficits
Skin: Warm
Labs/Micro/Reports
Lab Data
03/13/24 06:07
03/13/24 06:07
Laboratory Results
03/12/24 03/13/24 03/13/24
17:48 00:01 06:07
APTT 84.0 H 98.5 H 144.1 H
--- NOTE | 2024-03-13 13:07 | CM ---
Met with patient at bedside; initial assessment completed
Pharmacy verified: [facility] @ [address], [place], [place]
Patient reported she lives alone in a multilevel home; powder room 1st floor; 2nd floor bath has walk-in shower stall w/grab bars
PLOF: independent with ambulation, stairs, ADLs; drives; works full-time
DME: pulse Oximeter
NO SNF history
Mother will transport home
Plan: discharge to home today; no needs
--- NOTE | 2024-03-13 17:05 | PN.CDI ---
CDI
- -
CDI:
Physician Documentation Request
Admit Date: 03/11/24 11:17
Dear Doctor Deuce,
Please review the following and provide your response in the progress notes.
Clinical Indicators:
Pt admitted with Submassive bilateral VA with RV heart strain /pulmonary HTN/ Acute Hypoxic Respiratory Failure
Chest CT: There are moderately extensive bilateral pulmonary emboli with right heart strain and small areas of pulmonary infarction in the right lower lobe and right middle lobe
ECHO:' Enlarged right ventricle with severely reduced systolic function. Garner's sign and septal flattening present.'
Pt did have pulmonary arteriogram with TPA
Based on the above, could you clarify in the progress notes, the appropriate diagnosis, if significant, that supports the above abnormalities and additional evaluation, monitoring and/or treatment rendered:
Acute Bilateral Pulmonary Embolism with Acute COr Pulmonale
Acute Bilateral Pulmonary Embolism without Acute Cor pulmonale
Other ( please specify)
Use of terms such as suspected, likely, concern for, or probable (associated with a specific diagnosis that is being evaluated, monitored, or treated as if it exists) are acceptable and can be coded in the inpatient setting, when documented at the
time of discharge.
Thank you,
Simona Vasquez RN
CDI Specialist
[facility]
Please use your independent medical judgment in providing your response.
== END 2024-03-13 15:31 | disposition home or self-care (01) | DRG 173 ==
LOC: 3 WEST ACU 11:17
PROVIDERS: Emergency Medicine; Physician Assistant; Radiology Diagnostic Radiology; ADMITTING PHYSICIAN Hospitalist; CONSULT PHYSICIAN Internal Medicine Critical Care Medicine; EMERGENCY PHYSICIAN Emergency Medicine; FAMILY PHYSICIAN Family Medicine
PROC: 02F Heart and Great Vessels, Fragmentation (ICD-10-PCS; 2024-03-11)
PROC: 02F Heart and Great Vessels, Fragmentation (ICD-10-PCS; 2024-03-11)
DX: I26.99 Other pulmonary embolism without acute cor pulmonale (principal); J96.01 Acute respiratory failure with hypoxia; I24.89 Other forms of acute ischemic heart disease; D68.51 Activated protein C resistance; I82.432 Acute embolism and thrombosis of left popliteal vein; E87.20 Acidosis, unspecified; I27.29 Other secondary pulmonary hypertension; E03.9 Hypothyroidism, unspecified; E66.01 Morbid (severe) obesity due to excess calories; F32.A Depression, unspecified; I07.1 Rheumatic tricuspid insufficiency; I10 Essential (primary) hypertension; Z68.39 Body mass index [BMI] 39.0-39.9, adult; D50.9 Iron deficiency anemia, unspecified; E78.00 Pure hypercholesterolemia, unspecified; E78.1 Pure hyperglyceridemia; F41.9 Anxiety disorder, unspecified; F90.9 Attention-deficit hyperactivity disorder, unspecified type; I45.10 Unspecified right bundle-branch block; J30.2 Other seasonal allergic rhinitis; K21.9 Gastro-esophageal reflux disease without esophagitis; R73.9 Hyperglycemia, unspecified; R91.8 Other nonspecific abnormal finding of lung field; Z79.890 Hormone replacement therapy; Z79.899 Other long term (current) drug therapy; Z86.72 Personal history of thrombophlebitis; Z83.2 Family history of diseases of the blood and blood-forming organs and certain disorders involving the immune mechanism
CPT/HCPCS: 36620; 37211; 37214; 71275; 75743; 76937; 80048; 80053; 82805; 82962; 83036; 83735; 83880; 84100; 84484; 84703; 85025; 85027; 85379; 85384; 85610; 85730; 93005; 93306; 93970; 96374; 96375; 97162; 97166; 99291; C1769; J2997; Q9967

== ENCOUNTER → 2024-04-28 13:10 | Outpatient (REF) | payer OTHER, SELFPAY | LOC: HWRAD 13:10 | PROVIDERS: ATTENDING PHYSICIAN Nurse Practitioner Adult Health; FAMILY PHYSICIAN Family Medicine | DX: R10.2 Pelvic and perineal pain (principal) | CPT/HCPCS: 76830; 76856 ==

== ENCOUNTER → 2024-08-11 13:17 | Outpatient (REF) | payer OTHER, SELFPAY | LOC: HWRAD 13:17 | PROVIDERS: ATTENDING PHYSICIAN Nurse Practitioner Adult Health; FAMILY PHYSICIAN Family Medicine | DX: N83.209 Unspecified ovarian cyst, unspecified side (principal) | CPT/HCPCS: 76830; 76856 ==

== ENCOUNTER → 2025-03-16 10:38 | Outpatient (REF) | payer OTHER, SELFPAY | LOC: RAD 10:38 | PROVIDERS: ATTENDING PHYSICIAN Student in an Organized Health Care Education/Training Program; FAMILY PHYSICIAN Family Medicine | DX: I26.99 Other pulmonary embolism without acute cor pulmonale (principal); M25.40 Effusion, unspecified joint; M25.50 Pain in unspecified joint; M25.60 Stiffness of unspecified joint, not elsewhere classified; R76.81 Abnormal rheumatoid factor and anti-citrullinated protein antibody without rheumatoid arthritis; Z11.1 Encounter for screening for respiratory tuberculosis; Z11.59 Encounter for screening for other viral diseases; Z51.81 Encounter for therapeutic drug level monitoring | CPT/HCPCS: 73120; 73610; 73630 ==

== ENCOUNTER → 2025-04-03 15:50 | Outpatient (REF) | payer OTHER, SELFPAY | LOC: RCS 15:50 | PROVIDERS: ATTENDING PHYSICIAN Student in an Organized Health Care Education/Training Program; FAMILY PHYSICIAN Family Medicine | DX: E55.9 Vitamin D deficiency, unspecified (principal); I26.99 Other pulmonary embolism without acute cor pulmonale; M25.40 Effusion, unspecified joint; M25.50 Pain in unspecified joint; M25.60 Stiffness of unspecified joint, not elsewhere classified; M79.7 Fibromyalgia; R76.81 Abnormal rheumatoid factor and anti-citrullinated protein antibody without rheumatoid arthritis; Z11.59 Encounter for screening for other viral diseases; Z51.81 Encounter for therapeutic drug level monitoring | CPT/HCPCS: 93005 ==

== ENCOUNTER → 2025-05-08 10:42 | Outpatient (REF) | payer OTHER, SELFPAY | LOC: HWWDC 10:42 | PROVIDERS: ATTENDING PHYSICIAN Obstetrics & Gynecology; FAMILY PHYSICIAN Family Medicine | DX: Z12.31 Encounter for screening mammogram for malignant neoplasm of breast (principal) | CPT/HCPCS: 77063; 77067 ==